=== PATIENT | male | born 1985 | race Caucasian/White ===

== ENCOUNTER → 2020-07-01 | Day surgery (SDC) | payer BC ==
[~2020-07-01] MED LIST: Lactated Ringers 1,000 ML IV SCH
--- NOTE | 2020-07-04 07:35 | OR ---
DATE OF OPERATION: 07/01/2020 PREOPERATIVE DIAGNOSIS: CHRONIC GASTROESOPHAGEAL REFLUX DISEASE. POSTOPERATIVE DIAGNOSIS: CHRONIC GASTROESOPHAGEAL REFLUX DISEASE. SURGEON: Surya Kennedy MD PROCEDURE: DIAGNOSTIC ESOPHAGOGASTRODUODENOSCOPY WITH BIOPSIES X2, LESLY. ANESTHESIA: MAC. COMPLICATIONS: None. SPECIMEN: 1. Antral biopsy x2. 2. Antral LESLY. FINDINGS: 1. Full-length diagnostic EGD. 2. Antral gastritis with multiple small erosions. 3. Small hiatal hernia with spontaneous GERD. 4. Nonobstructing Schatzki's ring. 5. No signs of significant esophagitis or Kirk's changes. RECOMMENDATIONS: Aggressive proton pump therapy, lifestyle modification. INDICATIONS: The patient has been having some ongoing issues with reflux. Dr. Alvarado sent him for a diagnostic EGD. DESCRIPTION OF PROCEDURE: The patient was prepped and draped, placed in the left lateral decubitus position. A lubricated Olympus gastroscope was inserted over a bit, advanced to cricopharyngeus area, and easily intubated into the esophagus. The esophageal lining was benign in its entire course. The Z-line was crisp and sharp, around 38 to 39 cm. There is a small hernia present and significant spontaneous reflux, but no distal esophagitis, stricturing, ulceration, or Kirk's changes. There is a nonobstructing and early Schatzki's ring present. The scope was easily intubated into the stomach, through the pylorus, and into the second portion of the duodenum. This and the duodenal bulb were benign. The scope was brought back into the stomach and retroflexed. The upper fundus and cardia were unremarkable. Upon straightening, the rest of the fundus appeared benign. The antrum in its distal half showed acute and moderate gastritis with a few small focal erosions. No rolando ulcerations or bleeding. Two biopsies were taken along with a CLOtest from an unaffected portion. Air was then suctioned and the scope removed without complication. SHRUTI/LAUREN /[id number]
== END ==
LOC: CC.SDS 11:43
PROVIDERS: ATTEND Family Medicine
DX: K21.9 Gastro-esophageal reflux disease without esophagitis (principal); K44.9 Diaphragmatic hernia without obstruction or gangrene; K31.89 Other diseases of stomach and duodenum; I78.1 Nevus, non-neoplastic; E78.5 Hyperlipidemia, unspecified; I10 Essential (primary) hypertension; Z79.82 Long term (current) use of aspirin; Z79.899 Other long term (current) drug therapy
CPT/HCPCS: 87081; J7120